=== PATIENT | female | born 1990 | race Hispanic/Latino ===

== ENCOUNTER 2025-08-28 18:44 | Emergency (ER) | payer BC, OTHER ==
[~2025-08-28] VITALS: Ht 160 cm; Wt 70.3 kg
[~2025-08-28 18:44] MED LIST: IBUP-1492 PO; ONDA-243 PO; SULF1TAB42 PO
--- NOTE | 2025-08-28 18:59 | ERN ---
ED Note History of Present Illness Stated Complaint: BACK PAIN Chief Complaint: Back Pain-No Injury Time Seen by MD: 18:47 Dictation: PATIENT IS A 34-YEAR-OLD FEMALE COMING IN TODAY WITH THREE MONTHS OF RIGHT LATERAL LOW BACK PAIN AND LOWER THORACIC PAIN. SHE HAS HAD NO FEVER NO CHILLS NO NAUSEA VOMITING NO CHANGE IN URINATION. SHE DENIES ANY PAST MEDICAL HISTORY OF SURGERIES OR INJURIES. SHE STATES SHE DOES NOT DO ANY WEIGHT LIFTING SHE IS JUST INTO RUNNING. SHE STATES SHE HAS TAKEN NOTHING IN THE LAST 90 DAYS FOR HER PAIN, BECAUSE SHE HAS A HIGH TOLERANCE FOR PAIN. SHE SAID HOWEVER SOMETIMES WHEN SHE IS TWISTING OR TURNING IT IS VERY PAINFUL. SHE DOES NOT HAVE A PRIMARY CARE DOCTOR. SKIN IS INTACT THERE WAS NO VESICULAR LESIONS Allergies: Coded Allergies: No Known Drug Allergies (Unverified Allergy, Unknown, 11/28/24) Home Meds Active Scripts Ibuprofen (Ibuprofen) 600 Mg Tablet, 600 MG PO Q6H PRN for PAIN, #30 TAB Prov:ISH CUTLER [facility] 11/06/23 Ondansetron (Ondansetron Odt) 4 Mg Tab.rapdis, 4 MG PO TID PRN for NAUSEA, #9 TAB Prov:ISH CUTLER [facility] 11/06/23 Sulfamethoxazole/Trimethoprim (Bactrim Ds Tablet) 800 Mg-160 Mg Tablet, 1 TAB PO BID for 7 Days, #14 TAB 0 Refills Prov:ISH CUTLER [facility] 11/06/23 Past Medical History Past Medical History: No Pertinent History Surgical History: Other LMP: Aug 14, 2025 RN Note Reviewed/Agreed w/PFSH: Yes Review of System Dictation CONSTITUTIONAL: NEGATIVE EXCEPT FOR HPI HEAD/FACE: NEGATIVE EXCEPT FOR HPI EENT: NEGATIVE EXCEPT FOR HPI RESPIRATORY: NEGATIVE EXCEPT FOR HPI GASTROINTESTINAL/ABDOMINAL: NEGATIVE EXCEPT FOR HPI GENITOURINARY: NEGATIVE EXCEPT FOR HPI MUSCULOSKELETAL: NEGATIVE EXCEPT FOR HPI CHRONIC LOW BACK PAIN INTEGUMENTARY: NEGATIVE EXCEPT FOR HPI NEUROLOGICAL/PSYCH: NEGATIVE EXCEPT FOR HPI HEMATOLOGIC/LYMPHATIC: NEGATIVE EXCEPT FOR HPI ALL SYSTEMS NEGATIVE, EXCEPT NOTED ABOVE. 13 POINT REVIEW OF SYSTEMS ASSESSED AND ALL NEGATIVE EXCEPT FOR ABOVE. Initial Vital Sign VS Vital Signs Date Time Temp Pulse Resp B/P (MAP) Pulse Ox O2 Delivery O2 Flow Rate FiO2 08/28/25 18:48 98.6 57 20 123/75 98 Room Air 0 Physical Exam Dictation VITAL SIGNS REVIEWED GENERAL APPEARANCE: ALERT, ORIENTED X 3, MODERATE ACUTE DISTRESS, WELL DEVELOPED, NOURISHED. HEAD AND FACE: NON-TRAUMATIC. EYES: PERRL, PINK CONJUNCTIVAS, EYELID NO TRAUMA, ANTERIOR CHAMBER WITH ARCUS SENILIS. EARS: PINNAS INTACT AND NO SIGNS OF TRAUMA OR ERYTHEMA EAR CANALS CLEAR AND NO DISCHARGE TM NO ERYTHEMA NOSE: NO DISCHARGE, NO BLEEDING. OROPHARYNX: MOUTH NORMAL, TONGUE PINK, PHARYNX CLEAR,NO ERYTHEMA, TONSILS NO EXUDATES, NO ABSCESSES NOTED, MUCOUS MEMBRANE MOIST NECK: SUPPLE, NON-TENDER, NO THYROMEGALY, NO MASSES, NO JVD, NO BRUITS BREAST:DEFERRED CHEST:NO TENDERNESS, NO CREPITUS, NO PARADOXICAL MOVEMENT, NO RETRACTIONS LUNGS:CLEAR, WELL-VENTILATED, SYMMETRIC, NO RALES, NO WHEEZING, NO RHONCHI, NO STRIDOR, GOOD BREATH SOUNDS BILATERALLY HEART: REGULAR RATE, REGULAR RHYTHM, NO MURMUR, NO GALLOPS VASCULAR: NO PERIPHERAL EDEMA, ABDOMEN: SOFT, POSITIVE BOWEL SOUNDS, NONDISTENDED, NO GUARDING, NONTENDER, NO REBOUND, NO MASSES NO HEPATOMEGALY, NO SPLENOMEGALY, NO BANSAL'S SIGN, NO HERNIAS. RECTAL: DEFERRED GENITAL: DEFERRED NEUROLOGICAL: NORMAL SPEECH, MOTOR FUNCTION INTACT, SENSORY FUNCTION INTACT MUSCULOSKELETAL: NECK NONTENDER, FULL RANGE OF MOTION, RIGHT LATERAL LOWER THORACIC AND LUMBAR TENDERNESS WITH PARASPINOUS SPASM, FULL RANGE OF MOTION, NO MIDLINE SPINE PAIN OR STEP-OFFS NEGATIVE STRAIGHT LEG RAISE BILATERALLY 10 DEGREE EXTREMITIES: NONTENDER, FULL RANGE OF MOTION SKIN: COLOR PINK, DRY, NO TURGOR, NO RASH, NO LACERATIONS, NO ABRASIONS, NO CONTUSIONS. LYMPHATIC: DEFERRED Results (Laboratory/Radiology) Laboratory/Radiology N: CHRONIC RIGHT LATERAL THORACIC PAIN THREE MONTHS NON TRAUMA ORDERING PHYSICIAN: LISA MANCIA SPECIAL POPULATION PARAPROFESSIONAL PROCEDURE: THOR 2VW - THORACIC SPINE 2VWS EXAM: CR Thoracic Spine, 2 View. CLINICAL HISTORY: CHRONIC RIGHT LATERAL THORACIC PAIN THREE MONTHS NON TRAUMA COMPARISON: None provided. FINDINGS: BONES: No acute fracture or aggressive appearing osseous lesion. DISCS / DEGENERATIVE CHANGES: The disc spaces are preserved. SOFT TISSUES: The paraspinal soft tissue lines are unremarkable. The visualized lungs are clear. MISCELLANEOUS: Visualization of the upper thoracic spine is limited on the lateral view by overlying structures. IMPRESSION: No acute thoracic spine osseous abnormality. /[place] CHRONIC RIGHT LATERAL LUMBAR PAIN THREE MONTHS NON TRAUMA COMPARISON: None provided. FINDINGS: BONES: No acute fracture or aggressive appearing osseous lesion. ALIGNMENT: Alignment is within normal limits. No significant scoliosis. DISCS / DEGENERATIVE CHANGES: The disc spaces are preserved. SOFT TISSUES: The soft tissues are unremarkable. IMPRESSION: No acute lumbar spine abnormality evident. /[place] Labs Reviewed?: Yes ED Course ED Course Orders Procedure Category Date Status Time Ibuprofen 600 Mg PHA 08/28/25 Complete Tablet (Motrin) 19:00 Dexamethasone 4mg/Ml PHA 08/28/25 Complete 1ml Vial (Dexametha 19:00 Thoracic Spine 2vws RAD 08/28/25 Resulted 18:51 Lumbar Spine 2-3vws RAD 08/28/25 Resulted 18:51 Current Medications Medications (Trade) Dose Ordered Sig/Bren Route PRN Reason Start Time Stop Time Status Last Admin Dose Admin Dexamethasone Sodium Phosphate (dexaMETHasone 4MG/ML 1ML VIAL) 8 mg ONCE ONCE IM 08/28/25 19:00 08/28/25 19:01 DC 08/28/25 19:36 Ibuprofen (moTRIN) 600 mg ONCE ONCE PO 08/28/25 19:00 08/28/25 19:01 DC 08/28/25 19:37 Vital Signs Date Time Temp Pulse Resp B/P (MAP) Pulse Ox O2 Delivery O2 Flow Rate FiO2 08/28/25 18:48 98.6 57 20 123/75 98 Room Air 0 2000/x-rays are negative patient was given ibuprofen and Decadron states the pain is improving after work. Medical Decision Making MDM Medical discharge making based on empiric treatment for chronic pain X-rays of the thoracic and lumbar spine. X-rays read as negative Patient discharged home with lumbosacral and thoracic strain Given ibuprofen and Flexeril Given instructions to follow up with the primary care doctor DX & DISP Disposition: Discharge Departure Impression: Primary Impression: Thoracic myofascial strain Additional Impression: Lumbosacral strain Condition: Stable Scripts Ibuprofen (Ibuprofen 800 mg Tab) 800 Mg Tab 800 MG PO Q8H PRN for fever or pain, #30 TAB 0 Refills Prov: RHEINER,LISA P SPECIAL POPULATION PARAPROFESSIONAL 08/28/25 Cyclobenzaprine HCl (Cyclobenzaprine HCl) 10 Mg Tablet 1 TAB PO TID for muscle spasms for 10 Days, #30 TAB 0 Refills Prov: BLANCHELISA OLIVERA 08/28/25 Additional Instructions: Follow-up with primary care provider in 1 to 2 days. Take medications as directed here in the emergency room. Okay to continue home medications unless otherwise discussed during your visit in the emergency room today. Return to your nearest emergency room if symptoms worsen or if there is no improvement. Call 911 if you need immediate assistance. Take Tylenol or Motrin [id number] as needed and if no contraindications are present. Increase oral hydration. A wound culture or urine culture was ordered here in the emergency room department please follow-up with primary care provider and advise them to get repeat ports from our facility. If you had any [place]ito wrap/splints that were applied here, please do not remove them until you see your primary care or specialty. Take ibuprofen every8 hours with food for the next 2-3 days. Take Flexeril at bedtime for the next five days. Warm compresses to pain three to 4 times a day. See your primary care doctor for follow up. Referrals: SHAHZAD NUNEZ (PCP) I have reviewed the case, and I agree with, Diagnosis and Plan LISA MANCIA Aug 28, 2025 18:59
--- NOTE | 2025-08-28 19:50 | HMCIMG ---
EXAM: CR Thoracic Spine, 2 View. CLINICAL HISTORY: CHRONIC RIGHT LATERAL THORACIC PAIN THREE MONTHS NON TRAUMA COMPARISON: None provided. FINDINGS: BONES: No acute fracture or aggressive appearing osseous lesion. DISCS / DEGENERATIVE CHANGES: The disc spaces are preserved. SOFT TISSUES: The paraspinal soft tissue lines are unremarkable. The visualized lungs are clear. MISCELLANEOUS: Visualization of the upper thoracic spine is limited on the lateral view by overlying structures. IMPRESSION: No acute thoracic spine osseous abnormality. /[place]
--- NOTE | 2025-08-28 19:50 | HMCIMG ---
EXAM: CR Lumbar Spine, 3 View. CLINICAL HISTORY: CHRONIC RIGHT LATERAL LUMBAR PAIN THREE MONTHS NON TRAUMA COMPARISON: None provided. FINDINGS: BONES: No acute fracture or aggressive appearing osseous lesion. ALIGNMENT: Alignment is within normal limits. No significant scoliosis. DISCS / DEGENERATIVE CHANGES: The disc spaces are preserved. SOFT TISSUES: The soft tissues are unremarkable. IMPRESSION: No acute lumbar spine abnormality evident. /[place]
[2025-08-28] MEDS ORDERED: CYCL-309 PO (20:02)
[2025-08-28] MEDS ORDERED: IBUP-2077 PO (20:02)
[2025-08-28 20:13] VITALS: BP 125/66; PULSE 68; RESP 18; TEMP 98.8; O2SAT 99
== END 2025-08-28 20:18 | disposition home or self-care (01) ==
LOC: EDH 18:44
DX: S29.012A Strain of muscle and tendon of back wall of thorax, initial encounter (principal); S39.012A Strain of muscle, fascia and tendon of lower back, initial encounter; Z79.899 Other long term (current) drug therapy; Z98.890 Other specified postprocedural states; X58.XXXA Exposure to other specified factors, initial encounter; Y93.89 Activity, other specified; Y92.89 Other specified places as the place of occurrence of the external cause; Y99.8 Other external cause status
CPT/HCPCS: 99284; 72100; 72070; 96372; J1100